=== PATIENT | male | born 1955 | race Hispanic/Latino ===

== ENCOUNTER 2019-09-15 18:11 | Inpatient (IN) | payer BC, OTHER ==
[~2019-09-15] VITALS: Ht 160 cm; Wt 70.4 kg
[~2019-09-15 18:11] MED LIST: ASPI-1443 PO; CARV3.12 PO; DIGO125T71 PO; FURO20TA4 PO; LISI2.5T2 PO; SPIR25TA6 PO
[2019-09-15 19:22] LABS: BASOPHILS % (AUTO) 0.6 % (0.0-5.0); EOSINOPHILS % (AUTO) 1.8 % (0.0-8.0); HEMATOCRIT 50.3 % (42-54); LYMPHOCYTES % (AUTO) 18.7 % (21.0-51.0); MEAN CORPUSCULAR HEMOGLOBIN 32.1 pg (27.0-33.0); MEAN CORPUSCULAR HGB CONC 33.8 g/dL (32.0-36.0); MEAN CORPUSCULAR VOLUME 94.9 fL (79-99); MONOCYTES % (AUTO) 5.6 % (3.0-13.0); NEUTROPHILS % (AUTO) 73.1 % (40.0-77.0); PLATELET COUNT (AUTO) 215 K/uL (130-400); RED CELL DISTRIBUTION WIDTH 15.7 % (11.0-15.5); WHITE BLOOD COUNT (AUTO) 6.6 K/uL (4.8-10.8)
[2019-09-15 19:30] LABS: POTASSIUM 4.5 mmol/L (3.5-5.1)
[2019-09-15 19:35] LABS: BILIRUBIN,TOTAL 1.3 mg/dL (0.2-1.0); TOTAL PROTEIN, SERUM 8.5 g/dL (6.0-8.3)
[2019-09-15 19:58] LABS: B-TYPE NATRIURETIC PEPTIDE 1050 pg/mL (0-100)
[2019-09-15] MEDS ORDERED: ONDANSETRON HCL 4 MG/2 ML VIAL IV PRN (20:30)
[2019-09-15] MEDS ORDERED: ACETAMINOPHEN 325 MG TAB PO PRN ×2 (20:30)
[2019-09-15] MEDS ORDERED: LACTULOSE 20 GM/30 ML UDCUP PO PRN (20:30)
[2019-09-15] MEDS ORDERED: HYDRALAZINE HCL 20 MG/ML VIAL IV PRN (20:30)
[2019-09-15] MEDS ORDERED: FUROSEMIDE 10 MG/ML 4ML VIAL ONE (20:35)
[2019-09-15] MEDS: FAMOTIDINE 20MG TAB 20 MG TAB PO SCH (21:00)
[2019-09-15] MEDS: FUROSEMIDE 10 MG/ML 4ML VIAL IVP SCH (21:00)
[2019-09-15 22:03] LABS: CHOLESTEROL 107 mg/dL (<200); HDL CHOLESTEROL 23 mg/dL (29-71); LDL DIRECT 79 mg/dL (0-99); TRIGLYCERIDES 137 mg/dL (30-200)
[2019-09-15 22:04] LABS: INR 1.16 (0.85-1.15); PARTIAL THROMBOPLASTIN TIME 25.5 SEC (26.3-35.5); PROTHROMBIN TIME 12.5 SEC (9.6-11.6)
[2019-09-15 22:51] VITALS: BP 107/73
[2019-09-15 23:21] LABS: HEMOGLOBIN A1C 6.2 % (4.0-6.0)
[2019-09-16 04:00] VITALS: BP 97/56
[2019-09-16] MEDS: CARVEDILOL 3.125 MG TABLET PO SCH ×2 (06:36→16:56)
[2019-09-16 07:10] LABS: BASOPHILS % (AUTO) 0.9 % (0.0-5.0); EOSINOPHILS % (AUTO) 1.9 % (0.0-8.0); HEMATOCRIT 46.8 % (42-54); LYMPHOCYTES % (AUTO) 21.7 % (21.0-51.0); MEAN CORPUSCULAR HEMOGLOBIN 31.5 pg (27.0-33.0); MEAN CORPUSCULAR HGB CONC 33.8 g/dL (32.0-36.0); MEAN CORPUSCULAR VOLUME 93.2 fL (79-99); MONOCYTES % (AUTO) 6.6 % (3.0-13.0); NEUTROPHILS % (AUTO) 68.5 % (40.0-77.0); PLATELET COUNT (AUTO) 195 K/uL (130-400); RED BLOOD CELL COUNT(AUTO) 5.02 MIL/uL (4.50-6.20); RED CELL DISTRIBUTION WIDTH 15.6 % (11.0-15.5); WHITE BLOOD COUNT (AUTO) 6.8 K/uL (4.8-10.8)
[2019-09-16 07:32] LABS: CREATININE 0.9 mg/dL (0.5-1.5); POTASSIUM 3.8 mmol/L (3.5-5.1)
[2019-09-16 07:38] LABS: B-TYPE NATRIURETIC PEPTIDE 1050 pg/mL (0-100)
[2019-09-16 08:02] VITALS: BP 104/62
[2019-09-16] MEDS: FUROSEMIDE 10 MG/ML 4ML VIAL IVP SCH (08:37)
[2019-09-16] MEDS: FAMOTIDINE 20MG TAB 20 MG TAB PO SCH ×2 (08:37→21:30)
[2019-09-16] MEDS: LISINOPRIL 2.5 MG TABLET PO SCH (08:37)
[2019-09-16] MEDS: SPIRONOLACTONE 25 MG TAB PO SCH ×2 (08:38→21:00)
[2019-09-16] MEDS: ASPIRIN 81MG TAB.CHEW PO SCH (08:38)
[2019-09-16] MEDS: DIGOXIN 125 MCG TABLET PO SCH (08:38)
--- NOTE | 2019-09-16 10:09 | NUR ---
DR. Donato CARTER IN ROOM SPEAKING WITH PT. RE:PLAN OF CARE AND ANSWERING QUESTIONS. PT.'S SPOUSE AT BEDSIDE.
[2019-09-16 11:30] VITALS: BP 102/64
[2019-09-16 15:24] VITALS: BP 92/58
--- NOTE | 2019-09-16 15:57 | NUR ---
[employer]UC[employer] provided Heart Failure Nutrition Therapy. Reviewed handouts with Pt. Answered all Pt questions and discussed food alternatives. Pt verbalized understanding. Addendum: 09/16/19 at [address] Amended: Links added.
[2019-09-16] MEDS: FUROSEMIDE 10 MG/ML 2ML VIAL IV SCH (16:56)
--- NOTE | 2019-09-16 18:14 | NUR ---
CM NOTE/IA MEET WITH PATIENT AND IN ROOM. PER PATIENT, LIVES WITH SPOUSE, IS INDEPENDENT WITH ADLS, NO DME IN USE, DRIVES, EMPLOYED, AND FEELS SAFE TO RETURN HOME ONCE DISCHARGED. SELF PAY MEDICINE PACKET AND GOOD RX GIVEN TO PATIENT, VERBALIZED UNDERSTANDING. Addendum: 09/16/19 at 1815 by DELTA BOYD RN CM Amended: Links added.
[2019-09-16 20:03] VITALS: BP 89/65
[2019-09-16 23:32] VITALS: BP 80/57
[2019-09-17] VITALS (7 sets, daily range): BP systolic 85–110; BP diastolic 54–62
[2019-09-17] MEDS: FUROSEMIDE 10 MG/ML 2ML VIAL IV SCH ×3 (01:05→16:47)
[2019-09-17] MEDS: CARVEDILOL 3.125 MG TABLET PO SCH ×2 (06:25→16:46)
[2019-09-17] MEDS: LISINOPRIL 2.5 MG TABLET PO SCH (08:19)
[2019-09-17] MEDS: FAMOTIDINE 20MG TAB 20 MG TAB PO SCH ×2 (08:19→20:37)
[2019-09-17] MEDS: DIGOXIN 125 MCG TABLET PO SCH (08:19)
[2019-09-17] MEDS: ASPIRIN 81MG TAB.CHEW PO SCH (08:20)
[2019-09-17] MEDS: SPIRONOLACTONE 25 MG TAB PO SCH ×2 (08:20→20:37)
[2019-09-18] MEDS: FUROSEMIDE 10 MG/ML 2ML VIAL IV SCH ×2 (01:00→08:38)
[2019-09-18 04:02] VITALS: BP 91/62
[2019-09-18 05:28] LABS: MEAN CORPUSCULAR HEMOGLOBIN 30.8 pg (27.0-33.0); MEAN CORPUSCULAR HGB CONC 32.9 g/dL (32.0-36.0); MEAN CORPUSCULAR VOLUME 93.6 fL (79-99); RED BLOOD CELL COUNT(AUTO) 5.45 MIL/uL (4.50-6.20); RED CELL DISTRIBUTION WIDTH 15.3 % (11.0-15.5); WHITE BLOOD COUNT (AUTO) 7.5 K/uL (4.8-10.8)
[2019-09-18 05:39] LABS: ALBUMIN 3.5 g/dL (3.5-5.0); BILIRUBIN,TOTAL 1.1 mg/dL (0.2-1.0); CREATININE 0.9 mg/dL (0.5-1.5); MAGNESIUM 1.9 mg/dL (1.80-2.40); TOTAL PROTEIN, SERUM 7.7 g/dL (6.0-8.3)
[2019-09-18 07:00] VITALS: BP 92/71
[2019-09-18] MEDS: FAMOTIDINE 20MG TAB 20 MG TAB PO SCH ×2 (08:34→19:57)
[2019-09-18] MEDS: LISINOPRIL 2.5 MG TABLET PO SCH (08:34)
[2019-09-18] MEDS: DIGOXIN 125 MCG TABLET PO SCH (08:35)
[2019-09-18] MEDS: CARVEDILOL 3.125 MG TABLET PO SCH ×2 (08:35→16:14)
[2019-09-18] MEDS: SPIRONOLACTONE 25 MG TAB PO SCH ×2 (08:35→19:57)
[2019-09-18] MEDS: ASPIRIN 81MG TAB.CHEW PO SCH (08:36)
[2019-09-18 11:00] VITALS: BP 105/52
--- NOTE | 2019-09-18 13:15 | NUR ---
TESSIE BENNETT, IN ROOM SPEAKING WITH PT.
[2019-09-18 16:00] VITALS: BP 90/55
[2019-09-18 19:38] VITALS: BP 95/54
[2019-09-18] MEDS: FUROSEMIDE 20 MG TABLET PO SCH (19:57)
[2019-09-18 23:34] VITALS: BP 91/57
[2019-09-19 03:40] VITALS: BP 80/51
[2019-09-19 07:00] VITALS: BP 91/68
[2019-09-19] MEDS: SPIRONOLACTONE 25 MG TAB PO SCH (10:09)
[2019-09-19] MEDS: ASPIRIN 81MG TAB.CHEW PO SCH (10:10)
[2019-09-19] MEDS: DIGOXIN 125 MCG TABLET PO SCH (10:10)
[2019-09-19] MEDS: FUROSEMIDE 20 MG TABLET PO SCH (10:10)
[2019-09-19] MEDS: CARVEDILOL 3.125 MG TABLET PO SCH (10:11)
[2019-09-19] MEDS: FAMOTIDINE 20MG TAB 20 MG TAB PO SCH (10:11)
[2019-09-19] MEDS: LISINOPRIL 2.5 MG TABLET PO SCH (10:12)
[2019-09-19 11:03] VITALS: BP 90/66
[2019-09-19 15:51] VITALS: BP 87/61
== END 2019-09-19 18:57 | disposition home or self-care (01) | DRG 293 ==
LOC: EDH 18:11 → EDHIP 18:12 → OBSVTOIN 18:12 → 4BH 22:53
PROVIDERS: ADMIT Internal Medicine; ATTEND Internal Medicine
DX: I11.0 Hypertensive heart disease with heart failure (principal); I42.9 Cardiomyopathy, unspecified; E78.5 Hyperlipidemia, unspecified; I08.1 Rheumatic disorders of both mitral and tricuspid valves; I50.23 Acute on chronic systolic (congestive) heart failure; Z95.810 Presence of automatic (implantable) cardiac defibrillator; Z83.3 Family history of diabetes mellitus; Z82.5 Family history of asthma and other chronic lower respiratory diseases; Z80.42 Family history of malignant neoplasm of prostate; Z80.0 Family history of malignant neoplasm of digestive organs; Z82.49 Family history of ischemic heart disease and other diseases of the circulatory system
CPT/HCPCS: 36415; 71045; 80048; 80053; 80061; 80162; 82948; 83036; 83735; 83880; 84484; 85025; 85027; 85610; 85730; 93005; 93306; 93356; G0378; J1940

== ENCOUNTER 2021-03-04 15:36 | Inpatient (IN) | payer OTHER ==
[~2021-03-04] VITALS: Ht 160 cm; Wt 75.8 kg
[~2021-03-04 15:36] MED LIST changes: +LISI2.5T13 PO; -LISI2.5T2 PO
[2021-03-04 16:20] LABS: BASOPHILS % (AUTO) 0.6 % (0.0-5.0); EOSINOPHILS % (AUTO) 0.5 % (0.0-8.0); HEMATOCRIT 43.7 % (42-54); LYMPHOCYTES % (AUTO) 8.3 % (21.0-51.0); MEAN CORPUSCULAR HEMOGLOBIN 32.8 pg (27.0-33.0); MEAN CORPUSCULAR HGB CONC 34.1 g/dL (32.0-36.0); MEAN CORPUSCULAR VOLUME 96.3 fL (79-99); MONOCYTES % (AUTO) 10.3 % (3.0-13.0); NEUTROPHILS % (AUTO) 79.9 % (40.0-77.0); PLATELET COUNT (AUTO) 154 K/uL (130-400); RED BLOOD CELL COUNT(AUTO) 4.54 MIL/uL (4.50-6.20); RED CELL DISTRIBUTION WIDTH 15.7 % (11.0-15.5); WHITE BLOOD COUNT (AUTO) 9.5 K/uL (4.8-10.8)
[2021-03-04 16:32] LABS: POTASSIUM 4.3 mmol/L (3.5-5.1)
[2021-03-04 16:41] LABS: ALBUMIN 3.8 g/dL (3.5-5.0); B-TYPE NATRIURETIC PEPTIDE 653 pg/mL (0-100); BILIRUBIN,TOTAL 4.2 mg/dL (0.2-1.0); TOTAL PROTEIN, SERUM 8.7 g/dL (6.0-8.3)
[2021-03-04 17:19] LABS: APPEARANCE,URINE Clear (CLEAR); BILIRUBIN,URINE Moderate (NEGATIVE); COLOR,URINE Orange (YELLOW); GLUCOSE, URINE (UA) Negative (NEGATIVE); KETONES,URINE Negative (NEGATIVE); LEUKOCYTE ESTERASE ,URINE Small (NEGATIVE); NITRATE,URINE Positive (NEGATIVE); OCCULT BLOOD,URINE Negative (NEGATIVE); PROTEIN,URINE POS 2+ mg/dL (NEGATIVE)
[2021-03-04 17:35] LABS: BACTERIA,URINE Few /HPF (None Seen); RBC,URINE 0-1 /HPF (0-1)
[2021-03-04 17:36] LABS: MUCUS,URINE Few LPF (None Seen); SQUAMOUS EPITHELIAL CELL,UR Few /HPF (0-2)
[2021-03-04 17:57] LABS: INR 1.38 (0.85-1.15); PROTHROMBIN TIME 14.6 SEC (9.6-11.6)
[2021-03-04] MEDS ORDERED: FUROSEMIDE 40MG VIAL IV ONE (18:00)
[2021-03-04] MEDS ORDERED: 0.9%NACL 1000ML 500 ML IV ONE (18:30)
[2021-03-04] MEDS ORDERED: MORPHINE 2 MG SYG IV PRN (20:00)
[2021-03-04] MEDS ORDERED: MORPHINE 4 MG SYG IV PRN (20:00)
[2021-03-04] MEDS ORDERED: LACTATED RINGERS 1000ML 1,707 ML IV ONE (20:00)
[2021-03-04] MEDS ORDERED: ACETAMINOPHEN 325 MG TAB PO PRN (20:00)
[2021-03-04] MEDS: ZOSYN 3.375GM+NS 50ML 50 ML IV SCH (20:53)
[2021-03-04] MEDS: FUROSEMIDE 40MG VIAL IVP SCH (21:00)
[2021-03-04 22:36] LABS: ABG HCO3 18.4 mmol/L (21.0-28.0); ABG OXYGEN SATURATION 95.7 % (95.0-99.0); ABG PCO2 27 mmHg (35-48)
[2021-03-05 00:20] VITALS: BP 108/75
[2021-03-05 04:01] VITALS: BP 110/74
[2021-03-05] MEDS: ZOSYN 3.375GM+NS 50ML 50 ML IV SCH ×2 (04:53→14:28)
[2021-03-05 05:25] LABS: BASOPHILS % (AUTO) 0.5 % (0.0-5.0); EOSINOPHILS % (AUTO) 1.3 % (0.0-8.0); HEMATOCRIT 40.7 % (42-54); LYMPHOCYTES % (AUTO) 10.8 % (21.0-51.0); MEAN CORPUSCULAR HGB CONC 33.4 g/dL (32.0-36.0); MEAN CORPUSCULAR VOLUME 95.8 fL (79-99); MONOCYTES % (AUTO) 10.8 % (3.0-13.0); NEUTROPHILS % (AUTO) 76.1 % (40.0-77.0); PLATELET COUNT (AUTO) 112 K/uL (130-400); RED BLOOD CELL COUNT(AUTO) 4.25 MIL/uL (4.50-6.20); RED CELL DISTRIBUTION WIDTH 15.7 % (11.0-15.5); WHITE BLOOD COUNT (AUTO) 8.2 K/uL (4.8-10.8)
[2021-03-05 05:42] LABS: MAGNESIUM 1.7 mg/dL (1.80-2.40); POTASSIUM 4.1 mmol/L (3.5-5.1)
[2021-03-05 08:00] VITALS: BP 97/75
[2021-03-05] MEDS: FUROSEMIDE 40MG VIAL IVP SCH (08:57)
[2021-03-05] MEDS: ASPIRIN 81 MG EC TAB PO SCH (08:59)
[2021-03-05] MEDS: ENOXAPARIN SODIUM 40 MG/0.4 ML SYRINGE SQ SCH (09:00)
[2021-03-05] MEDS ORDERED: FAMOTIDINE 20MG TAB PO SCH (09:00)
[2021-03-05] MEDS: GUAIFENESIN-DM 200/20 MG 10 ML PO PRN ×2 (09:14→17:06)
[2021-03-05 12:00] VITALS: BP 99/66
[2021-03-05 16:00] VITALS: BP 99/65
[2021-03-05] MEDS: CEFTRIAXONE 2GM VIAL IVP SCH ×2 (16:08→16:10)
[2021-03-05] MEDS: CARVEDILOL 3.125 MG TABLET PO SCH ×2 (16:09→16:11)
[2021-03-05] MEDS: CETIRIZINE HCL 5 MG TABLET PO SCH (16:11)
[2021-03-05] MEDS: 0.9% NACL 250ML IVPB SCH ×2 (16:35→16:44)
[2021-03-05] MEDS: 0.9%NACL 1000ML 1,000 ML IV SCH (16:35)
[2021-03-05] MEDS: DOXYCYCLINE 100MG+NS 250ML IV SCH (16:35)
[2021-03-05] MEDS: AZITHROMYCIN 500MG+NS 250ML IV SCH (16:43)
[2021-03-05 18:27] LABS: HEMATOCRIT 46.3 % (42-54); MEAN CORPUSCULAR HEMOGLOBIN 33.1 pg (27.0-33.0); MEAN CORPUSCULAR HGB CONC 33.9 g/dL (32.0-36.0); MEAN CORPUSCULAR VOLUME 97.5 fL (79-99); RED BLOOD CELL COUNT(AUTO) 4.75 MIL/uL (4.50-6.20); RED CELL DISTRIBUTION WIDTH 15.7 % (11.0-15.5); WHITE BLOOD COUNT (AUTO) 8.2 K/uL (4.8-10.8)
[2021-03-05] MEDS: ZOSYN 3.375GM +NS 50ML IV SCH (18:30)
[2021-03-05] MEDS ORDERED: 0.9% NACL 500ML IV.SOLN 500 ML IV ONE (18:30)
[2021-03-05 18:46] LABS: CREATININE 1.2 mg/dL (0.5-1.5); POTASSIUM 3.7 mmol/L (3.5-5.1)
[2021-03-05 18:50] LABS: ALBUMIN 3.7 g/dL (3.5-5.0); BILIRUBIN,TOTAL 4.4 mg/dL (0.2-1.0); TOTAL PROTEIN, SERUM 8.6 g/dL (6.0-8.3)
[2021-03-05 20:00] VITALS: BP 105/84
[2021-03-05] MEDS ORDERED: SPIRONOLACTONE 25 MG TAB PO SCH (21:00)
[2021-03-06] VITALS (7 sets, daily range): BP systolic 94–131; BP diastolic 52–81
[2021-03-06] MEDS: DOXYCYCLINE 100MG+NS 250ML IV SCH ×2 (02:31→15:31)
[2021-03-06] MEDS: ZOSYN 3.375GM +NS 50ML IV SCH ×3 (02:31→18:30)
[2021-03-06] MEDS: 0.9%NACL 1000ML 1,000 ML IV SCH (02:47)
[2021-03-06] MEDS: 0.9% NACL 250ML IVPB SCH ×3 (02:48→15:32)
[2021-03-06 03:54] LABS: BASOPHILS % (AUTO) 0.5 % (0.0-5.0); EOSINOPHILS % (AUTO) 0.7 % (0.0-8.0); HEMATOCRIT 41.7 % (42-54); LYMPHOCYTES % (AUTO) 17.5 % (21.0-51.0); MEAN CORPUSCULAR HEMOGLOBIN 32.4 pg (27.0-33.0); MEAN CORPUSCULAR HGB CONC 33.8 g/dL (32.0-36.0); MEAN CORPUSCULAR VOLUME 95.9 fL (79-99); MONOCYTES % (AUTO) 11.6 % (3.0-13.0); NEUTROPHILS % (AUTO) 69.2 % (40.0-77.0); PLATELET COUNT (AUTO) 114 K/uL (130-400); RED BLOOD CELL COUNT(AUTO) 4.35 MIL/uL (4.50-6.20); RED CELL DISTRIBUTION WIDTH 15.6 % (11.0-15.5); WHITE BLOOD COUNT (AUTO) 8.6 K/uL (4.8-10.8)
[2021-03-06] MEDS ORDERED: MAG/ALUM/SIMETH 30 ML UDCUP ONE (03:59)
[2021-03-06] MEDS ORDERED: MAG/ALUM/SIMETH 30 ML UDCUP PO PRN (04:00)
[2021-03-06] MEDS ORDERED: ALPRAZOLAM 0.5 MG TABLET ONE (04:00)
[2021-03-06] MEDS ORDERED: ALPRAZOLAM 0.5 MG TABLET PO ONE (04:00)
[2021-03-06 04:07] LABS: B-TYPE NATRIURETIC PEPTIDE 833 pg/mL (0-100)
[2021-03-06 04:09] LABS: ALBUMIN 3.3 g/dL (3.5-5.0); BILIRUBIN,TOTAL 4.3 mg/dL (0.2-1.0); CREATININE 0.9 mg/dL (0.5-1.5); POTASSIUM 3.8 mmol/L (3.5-5.1); TOTAL PROTEIN, SERUM 7.7 g/dL (6.0-8.3)
[2021-03-06] MEDS: FAMOTIDINE 20MG TAB PO SCH ×3 (04:23→21:02)
[2021-03-06 08:13] LABS: HEPATITIS B CORE IGM Negative (Negative); HEPATITIS Bs ANTIGEN SCREEN P Negative (Negative)
[2021-03-06] MEDS: FLUTICASONE PROPIONATE 50MCG/SPRAY 16 GM BOTTLE EN SCH (08:41)
[2021-03-06] MEDS: ENOXAPARIN SODIUM 40 MG/0.4 ML SYRINGE SQ SCH (08:41)
[2021-03-06] MEDS: CETIRIZINE HCL 5 MG TABLET PO SCH (08:42)
[2021-03-06] MEDS: ASPIRIN 81 MG EC TAB PO SCH (08:42)
[2021-03-06] MEDS: CARVEDILOL 3.125 MG TABLET PO SCH (08:42)
[2021-03-06] MEDS: AZITHROMYCIN 500MG+NS 250ML IV SCH (15:31)
[2021-03-06] MEDS: GUAIFENESIN-DM 200/20 MG 10 ML PO PRN (15:31)
[2021-03-06 21:38] LABS: ABG HCO3 15.8 mmol/L (21.0-28.0); ABG OXYGEN SATURATION 97.3 % (95.0-99.0); ABG PCO2 26 mmHg (35-48)
[2021-03-06] MEDS ORDERED: FUROSEMIDE 20MG VIAL IV ONE (21:55)
[2021-03-06] MEDS ORDERED: ALPRAZOLAM 0.5 MG TABLET PO PRN (21:55)
[2021-03-07] VITALS (24 sets, daily range): BP systolic 94–122; BP diastolic 68–93
[2021-03-07] MEDS: 0.9% NACL 250ML IVPB SCH ×3 (03:00→14:46)
[2021-03-07 03:30] LABS: BASOPHILS % (AUTO) 0.4 % (0.0-5.0); EOSINOPHILS % (AUTO) 0.1 % (0.0-8.0); LYMPHOCYTES % (AUTO) 13.9 % (21.0-51.0); MEAN CORPUSCULAR HEMOGLOBIN 32.8 pg (27.0-33.0); MEAN CORPUSCULAR VOLUME 96.4 fL (79-99); MONOCYTES % (AUTO) 8.9 % (3.0-13.0); NEUTROPHILS % (AUTO) 75.9 % (40.0-77.0); PLATELET COUNT (AUTO) 128 K/uL (130-400); RED BLOOD CELL COUNT(AUTO) 4.15 MIL/uL (4.50-6.20); RED CELL DISTRIBUTION WIDTH 15.9 % (11.0-15.5); WHITE BLOOD COUNT (AUTO) 8.9 K/uL (4.8-10.8)
[2021-03-07] MEDS ORDERED: NOREPINEPHRIN 4MG/NS 250ML 250 ML IV SCH (03:30)
[2021-03-07 03:44] LABS: ALBUMIN 3.1 g/dL (3.5-5.0); BILIRUBIN,TOTAL 3.6 mg/dL (0.2-1.0); POTASSIUM 3.8 mmol/L (3.5-5.1); TOTAL PROTEIN, SERUM 7.3 g/dL (6.0-8.3)
[2021-03-07] MEDS ORDERED: 0.9%NACL 50ML 50 ML IV ONE (03:54)
[2021-03-07] MEDS: ZOSYN 3.375GM +NS 50ML IV SCH ×3 (03:59→18:12)
[2021-03-07] MEDS: FAMOTIDINE 20MG TAB PO SCH ×2 (08:04→20:03)
[2021-03-07] MEDS: CETIRIZINE HCL 5 MG TABLET PO SCH (08:04)
[2021-03-07] MEDS: ASPIRIN 81 MG EC TAB PO SCH (08:06)
[2021-03-07] MEDS: ENOXAPARIN SODIUM 40 MG/0.4 ML SYRINGE SQ SCH (08:20)
[2021-03-07] MEDS: FLUTICASONE PROPIONATE 50MCG/SPRAY 16 GM BOTTLE EN SCH (08:36)
[2021-03-07] MEDS ORDERED: LISINOPRIL 2.5 MG TABLET PO SCH (09:00)
[2021-03-07] MEDS: MIDODRINE HCL 5 MG TABLET PO SCH ×3 (09:01→20:04)
[2021-03-07] MEDS ORDERED: MIDODRINE HCL 5 MG TABLET PO SCH (14:00)
[2021-03-07] MEDS: DIGOXIN 125 MCG TABLET PO SCH (16:48)
[2021-03-07] MEDS: FUROSEMIDE 20MG VIAL IV SCH (20:03)
[2021-03-07] MEDS: GUAIFENESIN-DM 200/20 MG 10 ML PO PRN (20:03)
[2021-03-08] VITALS (7 sets, daily range): BP systolic 94–116; BP diastolic 48–85
[2021-03-08] MEDS ORDERED: 0.9%NACL 50ML 50 ML IV ONE (00:46)
[2021-03-08] MEDS: GUAIFENESIN-DM 200/20 MG 10 ML PO PRN (00:48)
[2021-03-08] MEDS: ZOSYN 3.375GM +NS 50ML IV SCH ×3 (00:48→16:54)
[2021-03-08] MEDS: 0.9% NACL 250ML IVPB SCH ×3 (00:51→09:37)
[2021-03-08] MEDS: FUROSEMIDE 20MG VIAL IV SCH ×3 (02:30→20:05)
[2021-03-08 04:24] LABS: BASOPHILS % (AUTO) 0.6 % (0.0-5.0); EOSINOPHILS % (AUTO) 2.1 % (0.0-8.0); HEMATOCRIT 42.4 % (42-54); LYMPHOCYTES % (AUTO) 24.3 % (21.0-51.0); MONOCYTES % (AUTO) 8.3 % (3.0-13.0); NEUTROPHILS % (AUTO) 64.1 % (40.0-77.0); NUCLEATED RED BLOOD CELLS 0.3 % (0.0-0.19); PLATELET COUNT (AUTO) 150 K/uL (130-400); RED BLOOD CELL COUNT(AUTO) 4.24 MIL/uL (4.50-6.20); RED CELL DISTRIBUTION WIDTH 16.4 % (11.0-15.5); WHITE BLOOD COUNT (AUTO) 7.7 K/uL (4.8-10.8)
[2021-03-08 04:38] LABS: ALBUMIN 3.1 g/dL (3.5-5.0); BILIRUBIN,TOTAL 2.9 mg/dL (0.2-1.0); CREATININE 0.9 mg/dL (0.5-1.5); DIGOXIN 0.41 ng/mL (0.50-2.00); POTASSIUM 3.3 mmol/L (3.5-5.1); TOTAL PROTEIN, SERUM 7.6 g/dL (6.0-8.3)
[2021-03-08 05:51] LABS: INR 1.41 (0.85-1.15); PROTHROMBIN TIME 14.9 SEC (9.6-11.6)
[2021-03-08 05:52] LABS: PARTIAL THROMBOPLASTIN TIME 29.6 SEC (26.3-35.5)
[2021-03-08 07:15] LABS: HEPATITIS Bs ANTIGEN SCREEN P Negative (Negative)
[2021-03-08] MEDS: MIDODRINE HCL 5 MG TABLET PO SCH ×2 (09:00→20:06)
[2021-03-08] MEDS ORDERED: MAGNESIUM OXIDE 400 MG TABLET PO SCH (09:00)
[2021-03-08] MEDS ORDERED: MAGNESIUM CHLORIDE 70 MG TABLET.SA PO SCH (09:00)
[2021-03-08] MEDS: FLUTICASONE PROPIONATE 50MCG/SPRAY 16 GM BOTTLE EN SCH (09:00)
[2021-03-08] MEDS: POTASSIUM CHLORIDE 10MEQ SR TAB PO SCH ×2 (09:29→20:06)
[2021-03-08] MEDS: PANTOPRAZOLE 40 MG TAB DR PO SCH (09:30)
[2021-03-08] MEDS: CARVEDILOL 12.5 MG TABLET PO SCH ×2 (09:30→20:07)
[2021-03-08] MEDS: CETIRIZINE HCL 5 MG TABLET PO SCH (09:30)
[2021-03-08] MEDS: LISINOPRIL 5 MG TABLET PO SCH (09:30)
[2021-03-08] MEDS: PRENATAL VITAMIN RX TABLET PO SCH (09:31)
[2021-03-08] MEDS: APIXABAN 5 MG TABLET PO SCH ×2 (09:31→20:06)
[2021-03-08] MEDS: THIAMINE HCL 100 MG TABLET PO SCH (09:31)
[2021-03-08] MEDS: ASPIRIN 81 MG EC TAB PO SCH (09:31)
[2021-03-08] MEDS: SPIRONOLACTONE 25 MG TAB PO SCH (09:32)
[2021-03-08] MEDS: DIGOXIN 125 MCG TABLET PO SCH (17:11)
[2021-03-09] MEDS ORDERED: 0.9%NACL 50ML 50 ML IV ONE (00:49)
[2021-03-09] MEDS: 0.9% NACL 250ML IVPB SCH ×4 (00:51→19:48)
[2021-03-09] MEDS: GUAIFENESIN-DM 200/20 MG 10 ML PO PRN ×2 (00:51→19:44)
[2021-03-09] MEDS: ZOSYN 3.375GM +NS 50ML IV SCH (00:51)
[2021-03-09] MEDS ORDERED: HYDROXYZINE 25 MG TABLET PO ONE (01:30)
[2021-03-09 04:03] LABS: HEMATOCRIT 39.8 % (42-54); MEAN CORPUSCULAR HEMOGLOBIN 32.9 pg (27.0-33.0); MEAN CORPUSCULAR HGB CONC 33.4 g/dL (32.0-36.0); MEAN CORPUSCULAR VOLUME 98.5 fL (79-99); NUCLEATED RED BLOOD CELLS 0.3 % (0.0-0.19); RED BLOOD CELL COUNT(AUTO) 4.04 MIL/uL (4.50-6.20); RED CELL DISTRIBUTION WIDTH 16.5 % (11.0-15.5); WHITE BLOOD COUNT (AUTO) 7.4 K/uL (4.8-10.8)
[2021-03-09 04:15] LABS: CREATININE 1.1 mg/dL (0.5-1.5); MAGNESIUM 1.8 mg/dL (1.80-2.40); POTASSIUM 4.3 mmol/L (3.5-5.1)
[2021-03-09 06:09] VITALS: BP 98/74
[2021-03-09] MEDS: ASPIRIN 81 MG EC TAB PO SCH (08:12)
[2021-03-09] MEDS: PANTOPRAZOLE 40 MG TAB DR PO SCH (08:13)
[2021-03-09] MEDS: CARVEDILOL 12.5 MG TABLET PO SCH ×2 (08:13→19:44)
[2021-03-09] MEDS: THIAMINE HCL 100 MG TABLET PO SCH (08:13)
[2021-03-09] MEDS: APIXABAN 5 MG TABLET PO SCH ×2 (08:15→19:44)
[2021-03-09] MEDS: CETIRIZINE HCL 5 MG TABLET PO SCH (08:17)
[2021-03-09] MEDS: PRENATAL VITAMIN RX TABLET PO SCH (08:17)
[2021-03-09] MEDS: MIDODRINE HCL 5 MG TABLET PO SCH ×2 (08:17→19:44)
[2021-03-09] MEDS: SPIRONOLACTONE 25 MG TAB PO SCH (08:18)
[2021-03-09] MEDS: FLUTICASONE PROPIONATE 50MCG/SPRAY 16 GM BOTTLE EN SCH (08:18)
[2021-03-09] MEDS: LISINOPRIL 5 MG TABLET PO SCH (08:18)
[2021-03-09] MEDS ORDERED: FUROSEMIDE 20 MG TABLET PO SCH ×2 (08:30→20:00)
[2021-03-09] MEDS ORDERED: CEFDINIR 250MG/5ML 60ML BOTTLE PO SCH ×2 (08:30→09:09)
[2021-03-09 08:42] VITALS: BP 100/74
[2021-03-09] MEDS ORDERED: POTASSIUM CHLORIDE 10MEQ SR TAB PO SCH (09:00)
[2021-03-09] MEDS: CEFDINIR 250MG/5ML 60ML BOTTLE PO SCH ×2 (11:54→19:45)
[2021-03-09 12:30] VITALS: BP 81/63
[2021-03-09] MEDS ORDERED: MAGNESIUM CHLORIDE 70 MG TABLET.SA PO SCH (15:00)
[2021-03-09 16:30] VITALS: BP 94/75
[2021-03-09] MEDS: DIGOXIN 125 MCG TABLET PO SCH (17:23)
[2021-03-09 19:00] VITALS: BP 90/68
[2021-03-09 19:01] LABS: CREATININE 1.1 mg/dL (0.5-1.5)
[2021-03-09] MEDS: FUROSEMIDE 40 MG TABLET PO SCH (19:44)
[2021-03-09] MEDS ORDERED: HYDROXYZINE 25 MG TABLET ONE (22:19)
[2021-03-09 23:00] VITALS: BP 98/75
[2021-03-10 00:32] VITALS: BP 106/63
[2021-03-10 04:00] VITALS: BP 117/76
[2021-03-10 06:56] LABS: BASOPHILS % (AUTO) 0.9 % (0.0-5.0); EOSINOPHILS % (AUTO) 1.7 % (0.0-8.0); HEMATOCRIT 41.1 % (42-54); LYMPHOCYTES % (AUTO) 19.5 % (21.0-51.0); MEAN CORPUSCULAR HEMOGLOBIN 33.5 pg (27.0-33.0); MEAN CORPUSCULAR HGB CONC 33.8 g/dL (32.0-36.0); MONOCYTES % (AUTO) 8.7 % (3.0-13.0); NEUTROPHILS % (AUTO) 68.3 % (40.0-77.0); PLATELET COUNT (AUTO) 159 K/uL (130-400); RED BLOOD CELL COUNT(AUTO) 4.15 MIL/uL (4.50-6.20); RED CELL DISTRIBUTION WIDTH 16.7 % (11.0-15.5); WHITE BLOOD COUNT (AUTO) 7.6 K/uL (4.8-10.8)
[2021-03-10 07:26] LABS: ALBUMIN 3.1 g/dL (3.5-5.0); BILIRUBIN,TOTAL 3.7 mg/dL (0.2-1.0); POTASSIUM 4.8 mmol/L (3.5-5.1); TOTAL PROTEIN, SERUM 7.3 g/dL (6.0-8.3)
[2021-03-10 08:16] VITALS: BP 97/70
[2021-03-10] MEDS: FLUTICASONE PROPIONATE 50MCG/SPRAY 16 GM BOTTLE EN SCH (09:00)
[2021-03-10] MEDS: LISINOPRIL 5 MG TABLET PO SCH (09:00)
[2021-03-10] MEDS: MIDODRINE HCL 5 MG TABLET PO SCH ×2 (09:00→20:46)
[2021-03-10] MEDS: CARVEDILOL 12.5 MG TABLET PO SCH (09:46)
[2021-03-10] MEDS: PANTOPRAZOLE 40 MG TAB DR PO SCH (09:47)
[2021-03-10] MEDS: FUROSEMIDE 40 MG TABLET PO SCH ×2 (09:47→20:45)
[2021-03-10] MEDS: SPIRONOLACTONE 25 MG TAB PO SCH (09:47)
[2021-03-10] MEDS: APIXABAN 5 MG TABLET PO SCH (09:48)
[2021-03-10] MEDS: CETIRIZINE HCL 5 MG TABLET PO SCH (09:48)
[2021-03-10] MEDS: CEFDINIR 250MG/5ML 60ML BOTTLE PO SCH ×2 (09:53→20:51)
[2021-03-10] MEDS: 0.9% NACL 250ML IVPB SCH ×2 (12:14)
[2021-03-10 12:48] VITALS: BP 97/73
[2021-03-10 16:46] VITALS: BP 82/61
[2021-03-10] MEDS: DIGOXIN 125 MCG TABLET PO SCH (17:00)
[2021-03-10 19:35] VITALS: BP 92/68
[2021-03-10] MEDS: CARVEDILOL 6.25 MG TABLET PO SCH (19:51)
[2021-03-11 00:32] VITALS: BP 106/63
[2021-03-11] MEDS: 0.9% NACL 250ML IVPB SCH ×3 (03:00→16:00)
[2021-03-11 04:11] LABS: HEMATOCRIT 40.3 % (42-54); MEAN CORPUSCULAR HEMOGLOBIN 33.2 pg (27.0-33.0); MEAN CORPUSCULAR VOLUME 97.6 fL (79-99); RED BLOOD CELL COUNT(AUTO) 4.13 MIL/uL (4.50-6.20); RED CELL DISTRIBUTION WIDTH 16.3 % (11.0-15.5)
[2021-03-11 04:40] LABS: BILIRUBIN,TOTAL 2.7 mg/dL (0.2-1.0); CREATININE 1.1 mg/dL (0.5-1.5); POTASSIUM 3.6 mmol/L (3.5-5.1); TOTAL PROTEIN, SERUM 7.6 g/dL (6.0-8.3)
[2021-03-11 05:30] VITALS: BP 113/69
[2021-03-11 07:00] VITALS: BP 98/54
[2021-03-11] MEDS ORDERED: ENOXAPARIN SODIUM 40 MG/0.4 ML SYRINGE SQ SCH (09:00)
[2021-03-11] MEDS: LISINOPRIL 5 MG TABLET PO SCH (09:00)
[2021-03-11] MEDS: CARVEDILOL 6.25 MG TABLET PO SCH ×2 (09:00→20:36)
[2021-03-11] MEDS: FLUTICASONE PROPIONATE 50MCG/SPRAY 16 GM BOTTLE EN SCH (09:00)
[2021-03-11 11:00] VITALS: BP 106/74
[2021-03-11] MEDS: CEFDINIR 250MG/5ML 60ML BOTTLE PO SCH ×2 (11:16→20:13)
[2021-03-11] MEDS: CETIRIZINE HCL 5 MG TABLET PO SCH (11:17)
[2021-03-11] MEDS: MIDODRINE HCL 5 MG TABLET PO SCH ×3 (11:20→20:14)
[2021-03-11] MEDS: PANTOPRAZOLE 40 MG TAB DR PO SCH (11:22)
[2021-03-11] MEDS: SPIRONOLACTONE 25 MG TAB PO SCH (11:24)
[2021-03-11] MEDS: FUROSEMIDE 40 MG TABLET PO SCH ×2 (11:24→19:58)
[2021-03-11 20:00] VITALS: BP 96/56
[2021-03-11] MEDS: DIGOXIN 125 MCG TABLET PO SCH (20:13)
[2021-03-11] MEDS ORDERED: KCL 20 MEQ ERTAB PO ONE ×2 (20:30→22:50)
[2021-03-11 23:56] VITALS: BP 96/65
[2021-03-12] MEDS: 0.9% NACL 250ML IVPB SCH ×3 (03:00→12:21)
[2021-03-12 04:21] VITALS: BP 109/68
[2021-03-12 07:00] VITALS: BP 103/67
[2021-03-12 07:44] LABS: CREATININE 0.9 mg/dL (0.5-1.5); MAGNESIUM 1.9 mg/dL (1.80-2.40); POTASSIUM 3.8 mmol/L (3.5-5.1)
[2021-03-12 07:55] LABS: BASOPHILS % (AUTO) 0.7 % (0.0-5.0); EOSINOPHILS % (AUTO) 2.8 % (0.0-8.0); LYMPHOCYTES % (AUTO) 16.8 % (21.0-51.0); MEAN CORPUSCULAR HGB CONC 34.1 g/dL (32.0-36.0); MEAN CORPUSCULAR VOLUME 96.7 fL (79-99); MONOCYTES % (AUTO) 9.8 % (3.0-13.0); NEUTROPHILS % (AUTO) 69.3 % (40.0-77.0); PLATELET COUNT (AUTO) 204 K/uL (130-400); RED BLOOD CELL COUNT(AUTO) 4.55 MIL/uL (4.50-6.20); RED CELL DISTRIBUTION WIDTH 16.1 % (11.0-15.5)
[2021-03-12] MEDS: LISINOPRIL 5 MG TABLET PO SCH (08:32)
[2021-03-12] MEDS: FLUTICASONE PROPIONATE 50MCG/SPRAY 16 GM BOTTLE EN SCH (09:00)
[2021-03-12] MEDS: PANTOPRAZOLE 40 MG TAB DR PO SCH (09:00)
[2021-03-12] MEDS: CETIRIZINE HCL 5 MG TABLET PO SCH (09:00)
[2021-03-12] MEDS ORDERED: MAGNESIUM 2GM PREMIX 50ML 50 ML IV PRN (09:30)
[2021-03-12] MEDS ORDERED: POTASSIUM CHLORIDE 20MEQ/100ML 100 ML IV PRN (09:30)
[2021-03-12] MEDS ORDERED: KCL 20 MEQ ERTAB PO ONE (09:38)
[2021-03-12] MEDS: MIDODRINE HCL 5 MG TABLET PO SCH ×2 (09:40→12:34)
[2021-03-12] MEDS: FUROSEMIDE 40 MG TABLET PO SCH (09:40)
[2021-03-12] MEDS: SPIRONOLACTONE 25 MG TAB PO SCH (09:41)
[2021-03-12] MEDS: CEFDINIR 250MG/5ML 60ML BOTTLE PO SCH (09:41)
[2021-03-12] MEDS: CARVEDILOL 6.25 MG TABLET PO SCH (09:41)
[2021-03-12 11:00] VITALS: BP 102/70
[2021-03-12 16:00] VITALS: BP 110/73
[2021-03-12] MEDS: DIGOXIN 125 MCG TABLET PO SCH (16:48)
[2021-03-12] MEDS ORDERED: SPIR25TA6 PO (17:58)
[2021-03-12] MEDS ORDERED: MIDO10TA PO (17:58)
[2021-03-12] MEDS ORDERED: CARV6.2579 PO (17:58)
[2021-03-12] MEDS ORDERED: FURO40TA7 PO (17:58)
[2021-03-12] MEDS ORDERED: POTA-79 PO (18:01)
[2021-03-12] MEDS ORDERED: MAGN400T53 PO (18:01)
[2021-03-12] MEDS ORDERED: OMEP20TA2 PO (18:07)
== END 2021-03-12 19:15 | disposition home or self-care (01) | DRG 871 ==
LOC: EDH 15:36 → EDHIP 15:37 → UNDOADMIN 19:54 → EDHIP 19:54 → 4CH 03-05 00:38 → 2DH 03-06 20:48
PROVIDERS: ADMIT Hospitalist; ATTEND Hospitalist
PROC: 5A09357 Assistance with Respiratory Ventilation, Less than 24 Consecutive Hours, Continuous Positive Airway Pressure (ICD-10-PCS; principal; 2021-03-07)
DX: A41.9 Sepsis, unspecified organism (principal); I50.43 Acute on chronic combined systolic (congestive) and diastolic (congestive) heart failure; J15.6 Pneumonia due to other Gram-negative bacteria; N39.0 Urinary tract infection, site not specified; D68.9 Coagulation defect, unspecified; I42.0 Dilated cardiomyopathy; I45.2 Bifascicular block; D69.6 Thrombocytopenia, unspecified; E88.09 Other disorders of plasma-protein metabolism, not elsewhere classified; F10.20 Alcohol dependence, uncomplicated; I08.1 Rheumatic disorders of both mitral and tricuspid valves; I27.29 Other secondary pulmonary hypertension; I50.82 Biventricular heart failure; E87.6 Hypokalemia; Z20.822 Contact with and (suspected) exposure to COVID-19; E83.42 Hypomagnesemia; I25.5 Ischemic cardiomyopathy; I11.0 Hypertensive heart disease with heart failure; E78.5 Hyperlipidemia, unspecified; J00 Acute nasopharyngitis [common cold]; K74.60 Unspecified cirrhosis of liver; I25.2 Old myocardial infarction; Z95.0 Presence of cardiac pacemaker; Z79.82 Long term (current) use of aspirin; Z79.899 Other long term (current) drug therapy; Z91.14 Patient's other noncompliance with medication regimen; Z91.19 Patient's noncompliance with other medical treatment and regimen; Z83.3 Family history of diabetes mellitus; Z80.42 Family history of malignant neoplasm of prostate; Z80.0 Family history of malignant neoplasm of digestive organs; Z82.49 Family history of ischemic heart disease and other diseases of the circulatory system; Z82.5 Family history of asthma and other chronic lower respiratory diseases
CPT/HCPCS: 36415; 36600; 71045; 76705; 80048; 80053; 80074; 80162; 81001; 82140; 82150; 82435; 82803; 82947; 82948; 83605; 83690; 83735; 83880; 84100; 84132; 84145; 84255; 84295; 84425; 84484; 85018; 85025; 85027; 85610; 85730; 86360; 86701; 86804; 87040; 87071; 87088; 87205; 87340; 87390; 87486; 87522; 87581; 87633; 87635; 87798; 93005; 93306; 93356; 94660; 97039; G0378; J0456; J0696; J1650; J1940; J2270; J2543; J3475; J3480; J3490; J7030; J7050; J7120

== ENCOUNTER 2021-09-29 03:30 | Inpatient (IN) | payer OTHER, MEDICARE ==
[~2021-09-29] VITALS: Ht 162.6 cm; Wt 68.4 kg
[~2021-09-29 03:30] MED LIST changes: -CARV3.12 PO; +CARV6.2579 PO; -FURO20TA4 PO; +FURO40TA7 PO; +MAGN400T53 PO; +OMEP20TA2 PO; +POTA-79 PO
[2021-09-29 03:52] LABS: BASOPHILS % (AUTO) 0.7 % (0.0-5.0); EOSINOPHILS % (AUTO) 2.1 % (0.0-8.0); HEMATOCRIT 49.9 % (42-54); MEAN CORPUSCULAR HEMOGLOBIN 32.3 pg (27.0-33.0); MEAN CORPUSCULAR HGB CONC 33.7 g/dL (32.0-36.0); MONOCYTES % (AUTO) 9.4 % (3.0-13.0); NEUTROPHILS % (AUTO) 67.2 % (40.0-77.0); NUCLEATED RED BLOOD CELLS 0.3 % (0.0-0.19); PLATELET COUNT (AUTO) 201 K/uL (130-400); RED CELL DISTRIBUTION WIDTH 16.6 % (11.0-15.5); WHITE BLOOD COUNT (AUTO) 7.3 K/uL (4.8-10.8)
[2021-09-29] MEDS ORDERED: FUROSEMIDE 40MG VIAL IV ONE (04:00)
[2021-09-29 04:02] LABS: CREATININE 1.2 mg/dL (0.5-1.5); POTASSIUM 3.9 mmol/L (3.5-5.1)
[2021-09-29 04:06] LABS: ALBUMIN 3.6 g/dL (3.5-5.0); BILIRUBIN,TOTAL 1.6 mg/dL (0.2-1.0); DIGOXIN 0.68 ng/mL (0.50-2.00); TOTAL PROTEIN, SERUM 8.1 g/dL (6.0-8.3)
[2021-09-29 04:28] LABS: B-TYPE NATRIURETIC PEPTIDE 693 pg/mL (0-100)
[2021-09-29] MEDS ORDERED: DIPHENHYDRAMINE HCL 25 MG CAPSULE PO ONE (05:30)
[2021-09-29] MEDS ORDERED: ACETAMINOPHEN 325 MG TAB PO PRN (05:30)
[2021-09-29] MEDS ORDERED: ONDANSETRON 4MG INJ IVP PRN (05:30)
[2021-09-29] MEDS ORDERED: MORPHINE 2 MG SYG IVP PRN (05:30)
[2021-09-29 06:35] LABS: APPEARANCE,URINE CLEAR (CLEAR); BILIRUBIN,URINE NEGATIVE (NEGATIVE); COLOR,URINE YELLOW (YELLOW); GLUCOSE, URINE (UA) NEGATIVE (NEGATIVE); KETONES,URINE NEGATIVE (NEGATIVE); LEUKOCYTE ESTERASE ,URINE NEGATIVE (NEGATIVE); NITRATE,URINE NEGATIVE (NEGATIVE); OCCULT BLOOD,URINE NEGATIVE (NEGATIVE); PROTEIN,URINE NEGATIVE (NEGATIVE); UROBILINOGEN,URINE 0.2 mg/dL (0.2-1.0)
[2021-09-29 06:43] LABS: AMPHET/METH SCREEN,URINE NEGATIVE (NEGATIVE); BARBITURATE SCREEN, URINE NEGATIVE (NEGATIVE); BENZODIAZEPINES SCREEN,URINE NEGATIVE (NEGATIVE); CANNABINOID SCREEN,URINE NEGATIVE (NEGATIVE); COCAINE SCREEN,URINE NEGATIVE (NEGATIVE); OPIATE SCREEN,URINE NEGATIVE (NEGATIVE); PHENCYCLIDINE SCREEN,URINE NEGATIVE (NEGATIVE)
[2021-09-29] MEDS ORDERED: PANT40TA54 PO (07:14)
[2021-09-29] MEDS ORDERED: CARV3.12 PO (07:14)
[2021-09-29] MEDS ORDERED: FURO40TA5 PO (07:14)
[2021-09-29] MEDS: ENOXAPARIN SODIUM 40 MG/0.4 ML SYRINGE SQ SCH (08:18)
[2021-09-29] MEDS: ASPIRIN 81 MG EC TAB PO SCH (08:18)
[2021-09-29] MEDS ORDERED: PANTOPRAZOLE 40 MG TAB DR PO SCH (09:00)
[2021-09-29] MEDS: KCL 20 MEQ ERTAB PO SCH (10:33)
[2021-09-29] MEDS: FUROSEMIDE 40MG VIAL IV SCH ×2 (10:33→17:21)
[2021-09-29 13:55] LABS: CREATININE 1.1 mg/dL (0.5-1.5); MAGNESIUM 1.9 mg/dL (1.80-2.40)
[2021-09-29] MEDS: CARVEDILOL 3.125 MG TABLET PO SCH (21:00)
[2021-09-30] MEDS: FUROSEMIDE 40MG VIAL IV SCH ×3 (01:21→16:44)
[2021-09-30 05:17] LABS: HEMATOCRIT 45.1 % (42-54); MEAN CORPUSCULAR HEMOGLOBIN 32.8 pg (27.0-33.0); MEAN CORPUSCULAR HGB CONC 33.9 g/dL (32.0-36.0); MEAN CORPUSCULAR VOLUME 96.6 fL (79-99); RED BLOOD CELL COUNT(AUTO) 4.67 MIL/uL (4.50-6.20); RED CELL DISTRIBUTION WIDTH 16.7 % (11.0-15.5); WHITE BLOOD COUNT (AUTO) 8.1 K/uL (4.8-10.8)
[2021-09-30 05:27] LABS: POTASSIUM 3.5 mmol/L (3.5-5.1)
[2021-09-30] MEDS: ZOSYN 3.375GM +NS 50ML IV SCH ×3 (08:16→22:15)
[2021-09-30] MEDS: PANTOPRAZOLE 40 MG TAB DR PO SCH (08:17)
[2021-09-30] MEDS: KCL 20 MEQ ERTAB PO SCH (08:17)
[2021-09-30] MEDS: ASPIRIN 81 MG EC TAB PO SCH (08:17)
[2021-09-30] MEDS: ENOXAPARIN SODIUM 40 MG/0.4 ML SYRINGE SQ SCH (08:18)
[2021-09-30] MEDS: CARVEDILOL 3.125 MG TABLET PO SCH (09:00)
[2021-09-30] MEDS: DIGOXIN 125 MCG TABLET PO SCH (09:50)
[2021-09-30] MEDS: SPIRONOLACTONE 25 MG TAB PO SCH (09:50)
[2021-09-30] MEDS ORDERED: KCL 20 MEQ ERTAB PO ONE (10:30)
[2021-09-30 10:56] LABS: ALBUMIN 3.5 g/dL (3.5-5.0); BILIRUBIN,TOTAL 2.1 mg/dL (0.2-1.0); CRP QUANTITATIVE 14.6 mg/L (0.00-9.0); TOTAL PROTEIN, SERUM 7.6 g/dL (6.0-8.3)
[2021-09-30 11:30] VITALS: BP 87/55
[2021-09-30 15:10] LABS: POTASSIUM 3.8 mmol/L (3.5-5.1)
[2021-09-30 15:32] VITALS: BP 91/64
[2021-09-30 19:43] VITALS: BP 104/56
[2021-09-30] MEDS ORDERED: KCL 20 MEQ ERTAB PO SCH (21:00)
[2021-10-01] VITALS (7 sets, daily range): BP systolic 93–116; BP diastolic 53–76
[2021-10-01] MEDS: FUROSEMIDE 40MG VIAL IV SCH ×3 (00:38→20:21)
[2021-10-01] MEDS: ZOSYN 3.375GM +NS 50ML IV SCH (06:01)
[2021-10-01 06:29] LABS: BASOPHILS % (AUTO) 0.5 % (0.0-5.0); EOSINOPHILS % (AUTO) 2.8 % (0.0-8.0); HEMATOCRIT 48.2 % (42-54); LYMPHOCYTES % (AUTO) 16.8 % (21.0-51.0); MEAN CORPUSCULAR HEMOGLOBIN 32.4 pg (27.0-33.0); MEAN CORPUSCULAR HGB CONC 33.6 g/dL (32.0-36.0); MEAN CORPUSCULAR VOLUME 96.4 fL (79-99); MONOCYTES % (AUTO) 9.2 % (3.0-13.0); NEUTROPHILS % (AUTO) 70.3 % (40.0-77.0); PLATELET COUNT (AUTO) 242 K/uL (130-400); RED CELL DISTRIBUTION WIDTH 16.7 % (11.0-15.5); WHITE BLOOD COUNT (AUTO) 7.6 K/uL (4.8-10.8)
[2021-10-01 06:58] LABS: ALBUMIN 3.3 g/dL (3.5-5.0); BILIRUBIN,TOTAL 1.9 mg/dL (0.2-1.0); MAGNESIUM 1.9 mg/dL (1.80-2.40); POTASSIUM 3.8 mmol/L (3.5-5.1); TOTAL PROTEIN, SERUM 7.6 g/dL (6.0-8.3)
[2021-10-01 07:15] LABS: B-TYPE NATRIURETIC PEPTIDE 330 pg/mL (0-100)
[2021-10-01] MEDS: SPIRONOLACTONE 25 MG TAB PO SCH (07:43)
[2021-10-01] MEDS: PANTOPRAZOLE 40 MG TAB DR PO SCH (07:43)
[2021-10-01] MEDS: ASPIRIN 81 MG EC TAB PO SCH (07:43)
[2021-10-01] MEDS: DIGOXIN 125 MCG TABLET PO SCH (07:44)
[2021-10-01] MEDS: ENOXAPARIN SODIUM 40 MG/0.4 ML SYRINGE SQ SCH (07:44)
[2021-10-01] MEDS: KCL 20 MEQ ERTAB PO SCH (07:44)
[2021-10-01] MEDS: LACTULOSE 20 GM/30 ML UDCUP PO PRN (13:24)
[2021-10-01] MEDS: METRONIDAZOLE 500 MG TABLET PO SCH (20:21)
[2021-10-02 03:56] VITALS: BP 94/65
[2021-10-02] MEDS: TRAMADOL HCL 50 MG TABLET PO PRN ×2 (06:10→19:52)
[2021-10-02 08:00] VITALS: BP 103/67
[2021-10-02] MEDS: FUROSEMIDE 40MG VIAL IV SCH ×2 (11:19→19:52)
[2021-10-02] MEDS: METRONIDAZOLE 500 MG TABLET PO SCH ×3 (11:19→19:51)
[2021-10-02] MEDS: PANTOPRAZOLE 40 MG TAB DR PO SCH (11:19)
[2021-10-02] MEDS: KCL 20 MEQ ERTAB PO SCH (11:20)
[2021-10-02] MEDS: APIXABAN 5 MG TABLET PO SCH ×2 (11:20→19:51)
[2021-10-02] MEDS: ASPIRIN 81 MG EC TAB PO SCH (11:20)
[2021-10-02] MEDS: SPIRONOLACTONE 25 MG TAB PO SCH ×2 (11:20→19:52)
[2021-10-02] MEDS: LEVOFLOXACIN 500 MG TABLET PO SCH (11:21)
[2021-10-02] MEDS: DIGOXIN 125 MCG TABLET PO SCH (11:22)
[2021-10-02 12:00] VITALS: BP 144/78
[2021-10-02 16:00] VITALS: BP 157/58
[2021-10-02 20:29] VITALS: BP 108/71
[2021-10-02] MEDS ORDERED: ZOLPIDEM TARTRATE 5 MG TAB PO PRN (21:30)
[2021-10-02] MEDS: IBUPROFEN 200 MG TAB PO SCH (22:01)
[2021-10-03] VITALS (7 sets, daily range): BP systolic 88–151; BP diastolic 54–70
[2021-10-03] MEDS: IBUPROFEN 200 MG TAB PO SCH ×6 (01:30→20:40)
[2021-10-03 03:18] LABS: HEMATOCRIT 45.3 % (42-54); MEAN CORPUSCULAR HEMOGLOBIN 33.2 pg (27.0-33.0); MEAN CORPUSCULAR HGB CONC 34.7 g/dL (32.0-36.0); MEAN CORPUSCULAR VOLUME 95.8 fL (79-99); RED BLOOD CELL COUNT(AUTO) 4.73 MIL/uL (4.50-6.20); RED CELL DISTRIBUTION WIDTH 15.9 % (11.0-15.5); WHITE BLOOD COUNT (AUTO) 7.3 K/uL (4.8-10.8)
[2021-10-03 03:19] LABS: POTASSIUM 4.1 mmol/L (3.5-5.1)
[2021-10-03] MEDS: TRAMADOL HCL 50 MG TABLET PO PRN (04:09)
[2021-10-03] MEDS: ASPIRIN 81 MG EC TAB PO SCH (09:27)
[2021-10-03] MEDS: KCL 20 MEQ ERTAB PO SCH (09:27)
[2021-10-03] MEDS: METRONIDAZOLE 500 MG TABLET PO SCH ×3 (09:28→20:39)
[2021-10-03] MEDS: LEVOFLOXACIN 500 MG TABLET PO SCH (09:28)
[2021-10-03] MEDS: FUROSEMIDE 40MG VIAL IV SCH ×2 (09:28→20:41)
[2021-10-03] MEDS: APIXABAN 5 MG TABLET PO SCH ×2 (09:28→20:40)
[2021-10-03] MEDS: PANTOPRAZOLE 40 MG TAB DR PO SCH (09:29)
[2021-10-03] MEDS: DIGOXIN 125 MCG TABLET PO SCH (09:29)
[2021-10-03] MEDS: SPIRONOLACTONE 25 MG TAB PO SCH ×2 (09:29→21:00)
[2021-10-03] MEDS ORDERED: INDO-15 PO (11:56)
[2021-10-03] MEDS ORDERED: LEVO500T90 PO (11:56)
[2021-10-03] MEDS ORDERED: ALPRAZOLAM 0.25 MG TABLET PO PRN (17:30)
[2021-10-04] VITALS: BP 117/69
[2021-10-04] MEDS: IBUPROFEN 200 MG TAB PO SCH ×3 (01:30→08:51)
[2021-10-04 04:00] VITALS: BP 92/56
[2021-10-04 04:49] LABS: HEMATOCRIT 49.5 % (42-54); MEAN CORPUSCULAR HEMOGLOBIN 32.7 pg (27.0-33.0); MEAN CORPUSCULAR HGB CONC 33.7 g/dL (32.0-36.0); MEAN CORPUSCULAR VOLUME 96.9 fL (79-99); RED BLOOD CELL COUNT(AUTO) 5.11 MIL/uL (4.50-6.20); RED CELL DISTRIBUTION WIDTH 15.8 % (11.0-15.5); WHITE BLOOD COUNT (AUTO) 8.1 K/uL (4.8-10.8)
[2021-10-04 05:02] LABS: CREATININE 1.2 mg/dL (0.5-1.5); POTASSIUM 4.2 mmol/L (3.5-5.1)
[2021-10-04 08:29] VITALS: BP 109/48
[2021-10-04] MEDS: PANTOPRAZOLE 40 MG TAB DR PO SCH (09:26)
[2021-10-04] MEDS: FUROSEMIDE 40MG VIAL IV SCH (09:26)
[2021-10-04] MEDS: LEVOFLOXACIN 500 MG TABLET PO SCH (09:26)
[2021-10-04] MEDS: SPIRONOLACTONE 25 MG TAB PO SCH (09:27)
[2021-10-04] MEDS: APIXABAN 5 MG TABLET PO SCH (09:28)
[2021-10-04] MEDS: KCL 20 MEQ ERTAB PO SCH (09:28)
[2021-10-04] MEDS: METRONIDAZOLE 500 MG TABLET PO SCH ×2 (09:28→13:43)
[2021-10-04] MEDS: ASPIRIN 81 MG EC TAB PO SCH (09:28)
[2021-10-04] MEDS: DIGOXIN 125 MCG TABLET PO SCH (09:28)
[2021-10-04] MEDS ORDERED: MAGNESIUM 2GM PREMIX 50ML 50 ML IV PRN (09:30)
[2021-10-04] MEDS ORDERED: IBUPROFEN 200 MG TAB PO PRN (10:00)
[2021-10-04 12:19] VITALS: BP 111/71
[2021-10-04] MEDS: FUROSEMIDE 40 MG TABLET PO SCH ×2 (16:40→16:44)
[2021-10-04 16:44] VITALS: BP 89/65
[2021-10-04] MEDS: LACTULOSE 20 GM/30 ML UDCUP PO PRN (16:50)
[2021-10-04] MEDS ORDERED: SPIR25TA6 PO (17:27)
[2021-10-04] MEDS ORDERED: FURO40TA5 PO (17:27)
[2021-10-04] MEDS ORDERED: ASPI-1443 PO (17:27)
[2021-10-04] MEDS ORDERED: MAGN400T53 PO (17:27)
[2021-10-04] MEDS ORDERED: APIX5TAB PO (17:27)
[2021-10-04] MEDS ORDERED: DIGO125T71 PO (17:27)
[2021-10-04] MEDS ORDERED: PANT40TA54 PO (17:27)
== END 2021-10-04 18:33 | disposition home or self-care (01) | DRG 291 ==
LOC: EDH 03:30 → EDHIP 05:03 → 2DH 09-30 11:30
PROVIDERS: ADMIT Hospitalist; ATTEND Hospitalist
DX: I11.0 Hypertensive heart disease with heart failure (principal); I50.43 Acute on chronic combined systolic (congestive) and diastolic (congestive) heart failure; I48.92 Unspecified atrial flutter; E11.9 Type 2 diabetes mellitus without complications; I48.91 Unspecified atrial fibrillation; K21.9 Gastro-esophageal reflux disease without esophagitis; I42.8 Other cardiomyopathies; I50.84 End stage heart failure; E66.9 Obesity, unspecified; F10.20 Alcohol dependence, uncomplicated; I42.0 Dilated cardiomyopathy; Z20.822 Contact with and (suspected) exposure to COVID-19; E78.5 Hyperlipidemia, unspecified; M10.9 Gout, unspecified; I42.6 Alcoholic cardiomyopathy; E78.00 Pure hypercholesterolemia, unspecified; Z79.01 Long term (current) use of anticoagulants; Z91.19 Patient's noncompliance with other medical treatment and regimen; Z79.899 Other long term (current) drug therapy; Z95.810 Presence of automatic (implantable) cardiac defibrillator; Z68.25 Body mass index [BMI] 25.0-25.9, adult
CPT/HCPCS: 36415; 71045; 74150; 76705; 78227; 80048; 80053; 80076; 80162; 80305; 81003; 82948; 83690; 83735; 83880; 84145; 84484; 84550; 85025; 85027; 85651; 86140; 87635; 93005; A9537; G0378; J1650; J1940; J2543; Q0163

== ENCOUNTER 2021-11-15 05:43 | Day surgery (SDC) | payer OTHER, MEDICARE ==
[2021-11-13 10:18] LABS: BASOPHILS % (AUTO) 0.6 % (0.0-5.0); EOSINOPHILS % (AUTO) 4.8 % (0.0-8.0); HEMATOCRIT 44.3 % (42-54); LYMPHOCYTES % (AUTO) 10.8 % (21.0-51.0); MEAN CORPUSCULAR HEMOGLOBIN 32.5 pg (27.0-33.0); MEAN CORPUSCULAR HGB CONC 34.8 g/dL (32.0-36.0); MEAN CORPUSCULAR VOLUME 93.5 fL (79-99); MONOCYTES % (AUTO) 7.2 % (3.0-13.0); NEUTROPHILS % (AUTO) 75.6 % (40.0-77.0); PLATELET COUNT (AUTO) 275 K/uL (130-400); RED BLOOD CELL COUNT(AUTO) 4.74 MIL/uL (4.50-6.20); RED CELL DISTRIBUTION WIDTH 13.8 % (11.0-15.5); WHITE BLOOD COUNT (AUTO) 9.4 K/uL (4.8-10.8)
[2021-11-13 10:38] LABS: INR 1.15 (0.85-1.15); PROTHROMBIN TIME 12.4 SEC (9.6-11.6)
[2021-11-13 10:39] LABS: PARTIAL THROMBOPLASTIN TIME 30.3 SEC (26.3-35.5)
[2021-11-14 09:54] VITALS: BP 104/70
[~2021-11-15] VITALS: Ht 162.6 cm; Wt 69.4 kg
[2021-11-15] VITALS (10 sets, daily range): BP systolic 93–119; BP diastolic 61–81
[~2021-11-15 05:43] MED LIST changes: +0.9%NACL 1000ML 1,000 ML IV SCH; +AEC81 PO; +APIX5TAB PO; -ASPI-1443 PO; -CARV6.2579 PO; +FURO40TA5 PO; -FURO40TA7 PO; -LISI2.5T13 PO; -MAGN400T53 PO; -OMEP20TA2 PO; -POTA-79 PO
[2021-11-15] MEDS ORDERED: BUPIVACAINE/PF 0.25% 30ML VIAL IJ ONE (08:22)
[2021-11-15] MEDS ORDERED: LIDOCAINE HCL 1% 20 ML VIAL ONE (08:22)
[2021-11-15] MEDS ORDERED: MIDAZOLAM HCL 1 MG/ML 2ML VIAL ONE ×4 (08:23→09:42)
[2021-11-15] MEDS ORDERED: CEFAZOLIN SODIUM 1 GM VIAL ONE ×2 (08:23→08:26)
[2021-11-15] MEDS ORDERED: IOHEXOL-350 50ML VIAL IV ONE (08:23)
[2021-11-15] MEDS ORDERED: MEPERIDINE-PF 25 MG/ML SYG ONE ×4 (08:23→09:42)
[2021-11-15] MEDS ORDERED: LIDOCAINE HCL 1% 10 ML VIAL ONE (08:24)
[2021-11-15] MEDS ORDERED: IODIXANOL 320 MG/ML 100 ML VIAL ONE (08:46)
[2021-11-15] MEDS ORDERED: THROMBIN-JMI 5000 UNIT/VIAL TP ONE (09:25)
[2021-11-15] MEDS ORDERED: AMIODARONE 150MG VIAL ONE ×2 (10:10→10:11)
[2021-11-15] MEDS ORDERED: PROPOFOL 10 MG/ML 20ML VIAL IV ONE (10:15)
[2021-11-15] MEDS ORDERED: BACITRACIN 1 EACH PACKET TP ONE (10:44)
[2021-11-15] MEDS ORDERED: ACETAMINOPHEN WITH CODEINE 1 TAB TAB PO PRN ×2 (11:00)
[2021-11-15] MEDS ORDERED: ONDANSETRON 4MG INJ IV PRN (11:00)
[2021-11-15] MEDS ORDERED: CEFAZOLIN SODIUM 1 GM VIAL IVP ONE (14:00)
== END 2021-11-15 15:27 | disposition home or self-care (01) ==
LOC: DAH 05:43
PROVIDERS: ATTEND Internal Medicine Cardiovascular Disease
DX: I42.0 Dilated cardiomyopathy (principal); I44.7 Left bundle-branch block, unspecified; I11.0 Hypertensive heart disease with heart failure; I50.42 Chronic combined systolic (congestive) and diastolic (congestive) heart failure; I48.91 Unspecified atrial fibrillation; M10.9 Gout, unspecified; E78.5 Hyperlipidemia, unspecified; Z79.01 Long term (current) use of anticoagulants; Z98.890 Other specified postprocedural states; Z79.82 Long term (current) use of aspirin; Z82.49 Family history of ischemic heart disease and other diseases of the circulatory system; Z79.899 Other long term (current) drug therapy
CPT/HCPCS: 80048; 85025; 85610; 85730; 87426; 36415; 93005; 33264; 33225; 71045; C1769 ×3; C1882; C1900; C1894; J0690 ×3; J7030; J3490 ×3; J2250 ×4; J2704; J2175 ×4; Q9967; J0282 ×2; A4215; A4222; A4221; A4663; A4216; A4606; A4223 ×3; 93641; 99156; 99157

== ENCOUNTER → 2021-12-18 | Outpatient (CLI) | payer OTHER, MEDICARE ==
[~2021-12-18] MED LIST changes: -0.9%NACL 1000ML 1,000 ML IV SCH
== END | disposition home or self-care (01) ==
LOC: RAH 09:31
PROVIDERS: ATTEND Internal Medicine
DX: M17.12 Unilateral primary osteoarthritis, left knee (principal); M25.562 Pain in left knee
CPT/HCPCS: 73560

== ENCOUNTER → 2022-01-09 | Outpatient (CLI) | payer OTHER, MEDICARE ==
[2022-01-09 12:23] LABS: BASOPHILS % (AUTO) 0.9 % (0.0-5.0); EOSINOPHILS % (AUTO) 1.3 % (0.0-8.0); HEMATOCRIT 46.1 % (42-54); LYMPHOCYTES % (AUTO) 12.1 % (21.0-51.0); MEAN CORPUSCULAR HEMOGLOBIN 33.1 pg (27.0-33.0); MEAN CORPUSCULAR HGB CONC 33.6 g/dL (32.0-36.0); MEAN CORPUSCULAR VOLUME 98.5 fL (79-99); MONOCYTES % (AUTO) 6.4 % (3.0-13.0); NEUTROPHILS % (AUTO) 78.4 % (40.0-77.0); PLATELET COUNT (AUTO) 236 K/uL (130-400); RED BLOOD CELL COUNT(AUTO) 4.68 MIL/uL (4.50-6.20); RED CELL DISTRIBUTION WIDTH 15.9 % (11.0-15.5)
[2022-01-09 12:35] LABS: ALBUMIN 3.6 g/dL (3.5-5.0); CREATININE 1.1 mg/dL (0.5-1.5); DIGOXIN 0.74 ng/mL (0.50-2.00); MAGNESIUM 1.7 mg/dL (1.80-2.40); POTASSIUM 3.8 mmol/L (3.5-5.1); TOTAL PROTEIN, SERUM 8.1 g/dL (6.0-8.3)
[2022-01-09 13:09] LABS: B-TYPE NATRIURETIC PEPTIDE 176 pg/mL (0-100)
== END | disposition home or self-care (01) ==
LOC: LAB 09:50
PROVIDERS: ATTEND Internal Medicine Cardiovascular Disease
DX: I10 Essential (primary) hypertension (principal); E78.5 Hyperlipidemia, unspecified; Z79.899 Other long term (current) drug therapy
CPT/HCPCS: 36415; 80053; 80162; 83735; 83880; 85025